=== PATIENT | female | born 1960 | race African-American/Black ===

== ENCOUNTER → 2019-08-30 | Outpatient (CLI) | payer OTHER | LOC: M.RAD 12:30 | DX: Z12.31 Encounter for screening mammogram for malignant neoplasm of breast (principal) ==

== ENCOUNTER → 2019-10-16 | Outpatient (CLI) | payer OTHER | LOC: M.ULTRA 10:30 | DX: N63.20 Unspecified lump in the left breast, unspecified quadrant (principal) ==